=== PATIENT | female | born 1990 | race African-American/Black ===

== ENCOUNTER 2018-04-05 16:01 | Emergency (ER) | payer OTHER ==
[~2018-04-05] VITALS: Ht 160 cm; Wt 59.0 kg
[~2018-04-05 16:01] MED LIST: CIPROFLOXACIN500 M1 PO; IBUPROFEN 600600 M1 PO; KEFLEX500 MG PO; NORCO 5-325 TA1 EACH PO; PHENERGAN 25 MG25 M1 PO; ULTRAM 50MG TAB50 MG PO
[2018-04-05 16:30] LABS: URINE BILIRUBIN NEGATIVE (Negative); URINE BLOOD 2+ (Negative); URINE CLARITY CLEAR; URINE COLOR YELLOW; URINE GLUCOSE-RANDOM* NEGATIVE (Negative); URINE KETONES NEGATIVE (Negative); URINE LEUKOCYTES-REFLEX TRACE (Negative); URINE NITRITE-REFLEX NEGATIVE (Negative); URINE PROTEIN (DIPSTICK) NEGATIVE (Negative); URINE SPECIFIC GRAVITY 1.025 (1.005-1.035); URINE UROBILINOGEN 0.2 E.U./dl (0.2-1.0)
[2018-04-05 16:38] LABS: SQUAMOUS >10 Many /LPF (0-3)
[2018-04-05 16:39] LABS: BACTERIA-REFLEX 1-9 Few /HPF (None Seen); CASTS None Seen /LPF (None Seen); CRYSTALS None Seen /LPF (None Seen); URINE RBC 3-10 Few /HPF (0-2); URINE WBC-REFLEX 0-5 Rare /HPF (0-5)
[2018-04-05] MEDS ORDERED: FLAGYL500 MG PO (17:34)
[2018-04-05] MEDS ORDERED: KEFLEX500 M1 PO (17:34)
[2018-04-05 18:26] VITALS: BP 110/73
[2018-04-10 08:58] LABS: NEISSERIA GONORRHEA-PCR Negative (Negative)
== END 2018-04-05 18:27 | disposition home or self-care (01) ==
LOC: ER 16:01
PROVIDERS: Physician Assistant
DX: N39.0 Urinary tract infection, site not specified (principal); A59.01 Trichomonal vulvovaginitis; N76.0 Acute vaginitis; G43.909 Migraine, unspecified, not intractable, without status migrainosus